=== PATIENT | female | born 1930 | race Caucasian/White ===

== ENCOUNTER 2016-07-18 08:44 | Emergency (ER) | payer MEDICARE ==
[~2016-07-18] VITALS: Ht 157.5 cm; Wt 60.0 kg
[~2016-07-18 08:44] MED LIST: ASPI81CH7 CHEW; ATEN50TA PO; DIOV160T6 PO; VALS1TAB65 PO
[2016-07-18 08:49] VITALS: BP 166/91; PULSE 69; RESP 14; TEMP 97.9; O2SAT 99
[2016-07-18] MEDS ORDERED: ATEN25TA PO (09:06)
[2016-07-18] MEDS ORDERED: MECLIZINE HCL 25 MG TAB PO ONE (09:15)
[2016-07-18] MEDS ORDERED: MECL12.574 PO (09:21)
--- NOTE | 2016-07-18 09:21 | PD ---
HPI Chief Complaint: Dizziness Time Seen by Provider: 08:50 Travel History International Travel<30 days: No Contact w/Intl Traveler<30days: No Traveled to known affect area: No History of Present Illness HPI The patient was seen and examined in the presence of the nurse. This patient reports that she has some room spinning dizziness which he stands or turns her head side. She does not have any headache or ear pain or hearing loss. She is not on blood thinners. No head injury. If she is not moving she feels fine and asymptomatic. Symptoms are of mild severity. No alleviating factors. Not having fever PFSH Past Medical History Cardiovascular Problems: Yes (htn) Diminished Hearing: No Hypertension: Yes Influenza Vaccination: No Past Surgical History Section: Yes Cholecystectomy: Yes Social History Alcohol Use: No Tobacco Use: No Substance Use: No Allergies-Medications (Allergen,Severity, Reaction): Coded Allergies: PEANUTS (Verified Allergy, Severe, "FOAM AT MOUTH", 02/07/16) Pentothal (Verified Allergy, Severe, Anaphylaxis, 02/07/16) Reported Meds & Prescriptions Reported Meds & Active Scripts Active Valsartan 160 Mg Tab 160 Mg PO BID Reported Atenolol 25 Mg Tab 25 Mg PO DAILY Aspirin Children's (Aspirin) 81 Mg Chew 81 Mg CHEW DAILY Review of Systems General / Constitutional: No: Fever HENT: Positive: Vertigo, No: Headaches Cardiovascular: No: Chest Pain or Discomfort Respiratory: No: Cough Physical Exam Narrative NEUROLOGICAL: Awake and alert. Pupils are equal round and reactive. Motor and sensory grossly within normal limits. Five out of 5 muscle strength in all muscle groups. Normal speech. NECK: Symmetrical appearance, midline trachea. No mass or crepitus. Thyroid without enlargement, tenderness, or mass. GASTROINTESTINAL: Abdomen soft, non-tender, nondistended. Positive bowel sounds. No hepato-splenomegaly, or palpable masses. No guarding. CARDIOVASCULAR: Regular rate and rhythm without murmur. Extremities showed no edema or varicosities. Data Data Last Documented VS Vital Signs Date Time Temp Pulse Resp B/P Pulse Ox O2 Delivery O2 Flow Rate FiO2 07/18/16 08:59 07/18/16 08:49 97.9 69 14 99 Room Air Orders Meclizine (Antivert) (07/18/16 09:15) [facility] Medical Decision Making Medical Screen Exam Complete: Yes Emergency Medical Condition: Yes Medical Record Reviewed: Yes Differential Diagnosis Positional vertigo, labyrinthitis, CVA Narrative Course I have reviewed the patient's electronic medical record. Patient is neurologically normal and asymptomatic and let she is in motion and then has brief room spinning vertigo sensation Looks clinically well and stable for outpatient follow-up With no headache or head injury or blood thinners and normal neurologic status is no indication for emergent brain imaging. I gave her 12.5 mg meclizine here prescription for same Warned her about possibility of sedation Suggested walker use for the short term if she is having trouble getting around and this would limit her fall risk She is to call her primary physician for follow-up and return if she worsens We discussed signs and symptoms of stroke and if she develops any she will promptly return Diagnosis Primary Impression: Positional vertigo Qualified Code: H81.10 - Positional vertigo, unspecified laterality Additional Instructions: The patient was advised to follow up with their physician and return if they worsen. The patient was warned about potential sedation for the medications they will receive on prescription. Change position slowly Consider walker use if you have trouble getting around to limit your fall risk Med/Other Pt SpecificInfo: Prescription(s) given Disposition: DISCHARGE HOME Condition: Stable Aries Encinas MD Jul 18, 2016 09:21
== END 2016-07-18 09:49 | disposition home or self-care (01) ==
LOC: PHED 08:44
DX: H81.10 Benign paroxysmal vertigo, unspecified ear (principal)
CPT/HCPCS: 99283